=== PATIENT | female | born 1945 | race Caucasian/White ===

== ENCOUNTER → 2024-03-07 13:14 | Outpatient (REF) | payer OTHER, SELFPAY | LOC: HWRAD 13:14 | PROVIDERS: ATTENDING PHYSICIAN Family Medicine | DX: M85.89 Other specified disorders of bone density and structure, multiple sites (principal); Z12.31 Encounter for screening mammogram for malignant neoplasm of breast; N18.31 Chronic kidney disease, stage 3a | CPT/HCPCS: 77080 ==